=== PATIENT | female | born 2000 | race Caucasian/White ===

== ENCOUNTER 2022-09-14 18:28 | Emergency (ER) | payer BC ==
[2022-09-14 19:14] VITALS: PULSE 83; RESP 20; TEMP 98.3; BMI 34.7
[2022-09-14] MEDS ORDERED: SODIUM CHLORIDE 1,000 ML IV STA ×2 (19:28→20:41)
[2022-09-14 19:37] VITALS: BP 134/81
[2022-09-14] MEDS ORDERED: ACETAMINOPHEN 1000 MG/100 ML BAG IVPB ONE (19:44)
[2022-09-14] MEDS ORDERED: ACETAMINOPHEN INJECTION 100 ML IVPB ONE (19:45)
[2022-09-14 19:54] LABS: ALBUMIN 4.5 g/dl (3.4-5.0); BILIRUBIN,TOTAL 0.6 mg/dl (0.2-1); CALCIUM 9.7 mg/dl (8.5-10); CREATININE 0.6 mg/dl (0.55-1.3); TOT PROT 7.4 g/dl (6.4-8.2)
[2022-09-14 20:09] LABS: HEMATOCRIT 40.8 % (32.4-45.2); HEMOGLOBIN 13.8 GM/dL (10.7-15.3); MCH 26.7 pg (25.7-33.7); MCHC 33.8 g/dl (32.0-36.0); MEAN CELL VOLUME 79.1 fl (80-96); MEAN PLT VOLUME 7.7 fl (7.5-11.1); PLATELET COUNT 332 10^3/uL (134-434); RBC 5.16 M/mm3 (3.60-5.2); RDW 12.7 % (11.6-15.6)
[2022-09-14 21:58] LABS: HCG,QUALITATIVE URINE Negative
[2022-09-14 23:18] LABS: ANISOCYTOSIS 0; MACROCYTOSIS 0
[2022-09-14 23:22] LABS: PLATELET ESTIMATE ADEQUATE
== END 2022-09-15 01:53 | disposition home or self-care (01) ==
LOC: FER 18:28
PROC: 3E033GC Introduction of Other Therapeutic Substance into Peripheral Vein, Percutaneous Approach (ICD-10-PCS; principal; 2022-09-14)
DX: N83.202 Unspecified ovarian cyst, left side (principal)
CPT/HCPCS: 36415; 74177-TC; 76856-TC; 80053; 81003; 84703; 85027; 99285-25; Q9967